=== PATIENT | male | born 1995 | race Caucasian/White ===

== ENCOUNTER 2024-04-20 11:08 | Day surgery (SDC) | payer SELFPAY ==
[2024-04-20] MEDS: Sodium Chloride 0.9% 1,000 ML IV STA (11:35)
[2024-04-20] MEDS: cefOXitin 2 GM in Sodium Chloride 0.9% 50 ML IV STA (11:36)
[2024-04-20] MEDS ORDERED: Lactated Ringers 1,000 ML IV SCH ×2 (11:45→13:45)
[2024-04-20] MEDS ORDERED: Rocuronium Bromide 50 MG/5 ML Syringe ONE (11:50)
[2024-04-20] MEDS ORDERED: Dexamethasone 4 MG/ML 5 ML MDV ONE (11:50)
[2024-04-20] MEDS ORDERED: Lidocaine 2% 5 ML SDV ONE (11:50)
[2024-04-20] MEDS ORDERED: Ondansetron 4 MG/2 ML SDV ONE (11:50)
[2024-04-20] MEDS ORDERED: Bupivacaine 0.25% 30 ML SDV ONE (11:52)
[2024-04-20] MEDS ORDERED: Ropivacaine 0.5% 5 MG/ML 30 ML SDV ONE (11:52)
[2024-04-20] MEDS ORDERED: dexmedeTOMIDine HCl 200 MCG/2 ML SDV ONE (11:53)
[2024-04-20] MEDS ORDERED: fentaNYL 100 MCG/2 ML SDV ONE (11:53)
[2024-04-20] MEDS ORDERED: Midazolam 1 MG/ML 2 ML SDV ONE (11:53)
[2024-04-20] MEDS ORDERED: Propofol 200 MG/20 ML SDV ONE (11:53)
[2024-04-20] MEDS ORDERED: Water For Injection, Sterile 20 ML ONE (11:53)
[2024-04-20] MEDS ORDERED: ceFAZolin 1 GM Vial ONE (11:55)
[2024-04-20] MEDS ORDERED: Bupivacaine 0.5% 30 ML SDV ONE (11:55)
[2024-04-20] MEDS ORDERED: Succinylcholine/Sod PF 100 MG/5 ML SYRINGE IV ONE (12:04)
[2024-04-20] MEDS ORDERED: HYDROmorphone 2 MG/ML Syringe ONE (12:31)
[2024-04-20] MEDS ORDERED: Ketorolac 30 MG/ML SDV ONE (13:07)
[2024-04-20] MEDS ORDERED: Sugammadex Sodium 200 MG/2 ML VIAL IV ONE (13:07)
[2024-04-20] MEDS ORDERED: Acetaminophen/HYDROcodone 325-5 MG Tab PO PRN (13:42)
== END 2024-04-20 17:27 | disposition home or self-care (01) ==
LOC: MW.ED 11:08 → MW.SDS 11:30 → MW.ED 11:39 → MW.SDS 11:40 → MW.MS 14:38 → MW.SDS 17:27
PROVIDERS: ATTEND Surgery
DX: K35.33 Acute appendicitis with perforation, localized peritonitis, and gangrene, with abscess (principal); Z91.018 Allergy to other foods; Z87.891 Personal history of nicotine dependence
CPT/HCPCS: 44970; 96374; 99284; J0131; J0330; J0665; J0690; J0694; J1100; J1170; J1885; J2250; J2405; J2704; J2795; J3010; J3490; J7030; 00840; 64488; 99283

== ENCOUNTER 2024-11-07 17:02 | Emergency (ER) | payer SELFPAY | END 2024-11-07 18:34 | disposition home or self-care (01) | LOC: MW.ED 17:02 | DX: B34.9 Viral infection, unspecified (principal); Z90.49 Acquired absence of other specified parts of digestive tract; Z91.018 Allergy to other foods | CPT/HCPCS: 87651; 99283 ==